=== PATIENT | female | born 1995 | race Caucasian/White ===

== ENCOUNTER 2022-09-07 15:27 | Emergency (ER) | payer SELFPAY ==
--- NOTE | 2022-09-07 15:15 | RT.EKG_ITS ---
APPROVED REPORT Exam: Resting ECG Reason for Exam: chest pain Patient Location: E HR:59 bpm ECG Measurements Heart Rate 59 AXIS ME 189 P 33 QRSd 99 QRS 52 QT 364 T 38 QTc 360 Conclusion Slow sinus arrhythmia...V-rate 46- 77, mean< 60
--- NOTE | 2022-09-07 15:30 | DI.RAD_ITS ---
Exam(s) XR CHEST 2V PA LATERAL EXAM: XR CHEST 2V PA LATERAL CLINICAL HISTORY: Cough, congestion. TECHNIQUE: 2D digital imaging was performed. COMPARISON: No exams were available for comparison FINDINGS: 2 views: Heart size is normal. The mediastinum is not widened. Lungs are clear. No infiltrates nor pleural effusions. Left breast shadow deficient IMPRESSION: No acute pulmonary findings. Asymmetric breast shadows. DATA REPOSITORY: RADIATION DOSE DELIVERED:
[2022-09-07 15:31] VITALS: BP 150/92; PULSE 71; RESP 18; TEMP 35.7; O2SAT 99
--- NOTE | 2022-09-07 15:46 | ED.GENADUL_ITS ---
Discharge Plan Disposition Patient Disposition: Home Condition: Improving Discharge Details Clinical Impression: Acute bronchitis Primary Care Provider: Unknown,Unknown ED Provider: Arcenio Padilla Home Meds and New Rx's Prescriptions: New azithromycin 250 mg tablet See Rx Instructions .ROUTE .COMPLEX Qty: 6 0RF Rx Instructions: For 250 mg dose pack: take 500 mg today (day 1), then 250 mg for 4 days (days 2-5) Discharge Instructions Instructions: Acute Bronchitis (ED) Additional Instructions: Home to rest this evening. Small, frequent sips of fluids so that you maintain good hydration. Your influenza and COVID test were negative today. Return to the emergency department for any acute concern. Medical Decision Making Pleasant and otherwise healthy 27-year-old female presents from work with report of 10 to 12 days of cough, congestion, subjective fever and chills. She denies chest pain. No known sick contacts. She is immunized against COVID. Differential diagnosis includes influenza, COVID, viral process, post viral pneumonia or bronchitis. Patient underwent screening EKG which is unremarkable. She is referred for chest x-ray. Viral swab: Negative for influenza and COVID Chest x-ray: No infiltrate seen. Discussed with patient given the prolonged course that she may be developing bronchitis. Will cover for atypical infections with a course of azithromycin. She is appropriate for discharge to home. HPI General Mode of arrival: ambulatory . Date/Time Provider Initiated Documentation: 09/07/22 15:29 . Limitations to Documentation: no limitations . Information obtained by: patient . History of Present Illness 27 year old F presents to the emergency department with the chief complaint of Cough, congestion for 10+ days, and is localized to the chest. Patient reports no radiation. Patient started experiencing this day(s) and it has been constant. No relieving factors improve symptom(s), No exacerbating factors reported . Patient notes cough and fever/chills; denies shortness of breath. Patient did receive the following treatments prior to arrival, none Related Data Home Medications Medication Instructions Recorded Confirmed azithromycin 250 mg tablet See Rx Instructions PO .COMPLEX #6 09/07/22 tabs Previous Rx's Medication Instructions Recorded azithromycin 250 mg tablet See Rx Instructions PO .COMPLEX #6 09/07/22 tabs Allergies Allergy/AdvReac Type Severity Reaction Status Date / Time amoxicillin Allergy Intermediate Other (See Unverified 09/07/22 15:34 Comment) Penicillins Allergy Intermediate Other (See Unverified 09/07/22 15:34 Comment) General Stated Complaint: RespSymp KEYLA: 3 Review of Systems Narrative: 6 systems are reviewed and otherwise negative PFSH All Active Problems (Updated 09/07/22 @ 16:44 by Arcenio Padilla MD) Acute bronchitis (Acute) Social History Smoking/Tobacco Use Status: Never Smoking risk assessment performed?: Yes Alcohol Intake: current Alcohol Intake frequency: a few times a month Drug use: Daily Substance use type: marijuana Do you feel safe at home: Yes Do you feel safe in your relationship?: Yes Exam Narrative Exam Narrative: GEN: awake, alert, oriented 3. Pleasant, well groomed, interactive. HEAD: Normocephalic, atraumatic ENT: Mucous membranes moist, oropharynx unremarkable, External ear exam unremarkable EYES: PERRL, EOMI NECK: Full ROM, no JANETT, no menigismus CHEST/RESP: Nontender, clear to auscultation bilateral, cough noted CARDIOVASCULAR: RRR, no murmur, rub homar. 2+ Rad pulse bilateral ABDOMEN: Soft, nontender, no mass. +Bowel sounds EXT: Full ROM, no edema, no rash Neuro: Grossly normal neurologic exam, conversant, interactive. Psych: Speech fluent, thoughts congruent, affect normal Course Vital Signs Vital signs: Vital Signs Temperature 35.7 C L 09/07/22 15:31 Pulse 71 09/07/22 15:31 Respiratory Rate 18 09/07/22 15:31 Blood Pressure 150/92 H 09/07/22 15:31 Pulse Oximetry 99 09/07/22 15:31 Temperature 35.7 C L 09/07/22 15:31 Temperature Source Temporal Artery Scan 09/07/22 15:31 Pulse 71 09/07/22 15:31 Respiratory Rate 18 09/07/22 15:31 Respiratory Effort 09/07/22 15:36 Respiratory Depth Normal 09/07/22 15:36 Blood Pressure 150/92 H 09/07/22 15:31 Blood Pressure Position Sitting 09/07/22 15:31 Pulse Oximetry 99 09/07/22 15:31 Oxygen Delivery Method Room Air 09/07/22 15:31 Oxygen Flow Rate 0 09/07/22 15:31 PAWSS Have you Been Recently Intoxicated or Drunk Within the Last 30 days?: No Have you Ever Experienced Previous Episodes of Alcohol Withdrawal?: No Have you ever Experienced Withdrawal Seizures?: No Have you ever Experienced Delirium Tremens(DT)s?: No Have you ever undergone Alcohol Rehabilitation Treatment (i.e, inpt ot outpatient treatment programs)?: No Have you ever Experienced Blackouts?: No Have you ever Combined Alcohol with other Downers within the last 90 days?: No Have you ever Combined Alcohol with any other Substance of Abuse during the last 90 days?: No Positive Blood Alcohol level on Presentation? [PCS.BAL]: No Evidence of Increased Autonomic Activity (i.e. HR>120, tremor, sweating, agitation, nausea)?: No Result: 0
[2022-09-07] MEDS: Acetaminophen 500 MG TAB 1000 MG PO (15:56)
[2022-09-07] MEDS: Albuterol HFA 8 GM 60 PUFF INH IH (16:56)
== END 2022-09-07 17:30 | disposition home or self-care (01) ==
PROVIDERS: Emergency Provider Emergency Medicine
DX: J20.9 Acute bronchitis, unspecified (principal); Z20.822 Contact with and (suspected) exposure to COVID-19
CPT/HCPCS: 93005; 94640; 99284; 71046; 93010

== ENCOUNTER 2022-10-27 15:42 | Emergency (ER) | payer SELFPAY ==
[2022-10-27] VITALS (12 sets, daily range): BP systolic 133–154; BP diastolic 71–88; PULSE 64–103; RESP 11–23; TEMP 36.6; O2SAT 97–100
--- NOTE | 2022-10-27 15:45 | RT.EKG_ITS ---
APPROVED REPORT Exam: Resting ECG Reason for Exam: chest pain Patient Location: E HR:73 bpm ECG Measurements Heart Rate 73 AXIS KS 212 P 28 QRSd 102 QRS 49 QT 372 T 28 QTc 411 Conclusion Sinus rhythm...normal P axis, V-rate 60- 99 Prolonged KS interval...KS >210, V-rate 50- 90 Physician: no stemi, unchanged from prior. inverted T wave in V1 and V2
--- NOTE | 2022-10-27 15:45 | DI.RAD_ITS ---
Exam(s) XR CHEST 2V PA LATERAL EXAM: XR CHEST 2V PA LATERAL CLINICAL HISTORY: chest pain TECHNIQUE: 2D digital imaging was performed of the chest. Two images were obtained. PA and lateral views were obtained. COMPARISON: CR XR CHEST 2V PA LATERAL from 09/07/2022 FINDINGS: MEDIASTINUM: Normal. HEART: Normal. PULMONARY VASCULATURE: Normal. LUNGS: Clear. PLEURAL SPACE: No pleural effusion or pneumothorax. BONE:Within normal limits for the patient's age. OTHER FINDINGS:Normal. IMPRESSION: No acute pulmonary findings. DATA REPOSITORY: RADIATION DOSE DELIVERED:
[2022-10-27 16:01] LABS: Abs Immature Grans 0.07 10^3/uL (0.0-0.06); Absolute Basophil Count 0.05 10^3/uL (0.0-0.2); Absolute Eosinophil Count 0.03 10^3/uL (0.0-0.7); Absolute Lymphocyte Count 2.58 10^3/uL (1.2-3.4); Basophils % 0.4; Eosinophils % 0.3; HCT 43.3 % (36.0-46.0); HGB 13.9 g/dL (11.2-15.7); Immature Grans % 0.6; Lymphocytes % 22.1; MCH 28.9 pg (27.0-33.0); MCHC 32.1 % (32.0-36.0); MCV 90 fL (80-95); MPV 10.7 fL (8.0-11.0); Monocytes % 5.7; Neutrophils % 70.9; Platelet Count 293 10^3/uL (130-400); RBC 4.81 10^6/uL (3.93-5.22); RDW 11.6 % (11.7-14.6); RDW-SD 38.3 fL; WBC 11.66 10^3/uL (4.4-10.8)
[2022-10-27 16:02] LABS: Absolute Monocyte Count 0.66 10^3/uL (0.1-0.8); Absolute Neutrophil Count 8.27 10^3/uL (1.2-6.7)
--- NOTE | 2022-10-27 16:08 | ED.GENADUL_ITS ---
Discharge Plan Disposition Patient Disposition: Home Condition: Improving Discharge Details Clinical Impression: Chest pain Primary Care Provider: Meek Lucio ED Provider: Arnoldo Valentin Home Meds and New Rx's Prescriptions: No Action No Known Home Meds Discharge Instructions Instructions: Chest Pain (ED) Additional Instructions: Work-up in the ER does not reveal any obvious emergent process and your symptoms have essentially resolved. Please watch for new or worsening symptoms and return to the ER for any concerns. 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 Clinically she appears well, nontoxic, hemodynamically stable, pulse in the 80s, afebrile, O2 sat 100% on room air. Based upon her age and lack of risk factors, extremely low suspicion for acute cardiac etiology. PERC negative, will not pursue D-dimer. Instead will initiate cardiac work-up and provide a single DuoNeb given my suspicion for potential chemical irritation. Patient reports at work her symptoms were a 6 out of 10, now a 3 out of 10. She reports history of anxiety and panic attacks but this does not feel the same. Laboratory values reveal minimal nonspecific leukocytosis of 11.66. Potassium is 3.0 but EKG does not reveal any signs of hypokalemia. We will provide both IV and p.o. potassium. Renal function normal, LFTs unremarkable, magnesium 1.9 troponin less than 50, urinalysis unremarkable. COVID, flu, RSV all negative. On reevaluation patient reports that the DuoNeb seemed to make her feel jittery but she states that the chest tightness sensation has essentially resolved. Chest x-ray clear Patient is agreeable to awaiting delta troponin although low suspicion of ACS. Patient reports that she feels well, asymptomatic and feels well enough to go home at this time. She was ambulatory without difficulty. Delta troponin remains less than 50. Upon reevaluation patient remains asymptomatic. We discussed her overall work- up and she is comfortable discharge. We did discuss her low potassium and replenishment here in the ER. We did discuss the importance of outpatient reevaluation through her PCP for her presentation today as well as her hypokalemia. Repeat labs likely indicated to assess her potassium. Standard discharge and return precautions were provided. Patient understands, is agreeable to this plan, and has no additional questions or concerns upon discharge. This documentation was generated using [employer] system, please disregard any oddities of phrase or misspellings. Medical Records Medical records reviewed: Yes I reviewed the patient's medical records. Imaging Data Radiologic Study: Attestation: I personally reviewed and interpreted this imaging study as follows: Imaging: X-Ray Radiologist's impression: PROCEDURE INFORMATION: Exam: XR Chest Exam date and time: 10/27/2022 4:49 PM Age: 27 years old Clinical indication: Chest pain TECHNIQUE: Imaging protocol: Radiologic exam of the chest. Views: 2 views. COMPARISON: CR XR CHEST 2V PA LATERAL 09/07/2022 4:10 PM FINDINGS: Lungs: Unremarkable. No consolidation. Pleural spaces: Unremarkable. No pleural effusion. No pneumothorax. Heart/Mediastinum: Unremarkable. No cardiomegaly. Bones/joints: Unremarkable. IMPRESSION: No acute findings. Lab Data Lab results reviewed: Yes I reviewed the patient's lab results. Labs: Laboratory Tests Range/Units 10/27/22 10/27/22 10/27/22 15:54 15:54 16:17 WBC (4.4-10.8) 10^3/uL 11.66 H RBC (3.93-5.22) 10^6/uL 4.81 Hgb (11.2-15.7) g/dL 13.9 Hct (36.0-46.0) % 43.3 MCV (80-95) fL 90 MCH (27.0-33.0) pg 28.9 MCHC (32.0-36.0) % 32.1 RDW (11.7-14.6) % 11.6 L Plt Count (130-400) 10^3/uL 293 MPV (8.0-11.0) fL 10.7 Immature Gran % 0.6 Neutrophils % 70.9 Lymphocytes % 22.1 Monocytes % 5.7 Eosinophils % 0.3 Basophils % 0.4 Nucleated RBC % (0.0-0.3) % 0.0 Absolute Neutrophils (1.2-6.7) 10^3/uL 8.27 H Absolute Lymphocytes (1.2-3.4) 10^3/uL 2.58 Absolute Monocytes (0.1-0.8) 10^3/uL 0.66 Absolute Eosinophils (0.0-0.7) 10^3/uL 0.03 Absolute Basophils (0.0-0.2) 10^3/uL 0.05 Sodium (136-145) mmol/L 143 Potassium (3.5-5.1) mmol/L 3.0 L Chloride (98-107) mmol/L 104 Carbon Dioxide (21.0-32.0) mmol/L 30.6 Anion Gap (3-11) mmol/L 8.4 BUN (7-18) mg/dL 10 Creatinine (0.55-1.02) mg/dL 0.8 Est GFR (CKD-EPI 2020) (mL/min/1.73m2) 104.15 Glucose (74-106) mg/dL 85 Calcium (8.5-10.1) mg/dL 9.3 Magnesium (1.8-2.4) mg/dL 1.9 Total Bilirubin (0.2-1.0) mg/dL 0.4 AST (15-37) U/L 23 ALT (14-59) U/L 28 Alkaline Phosphatase (46-116) U/L 76 Troponin I (<or=60) ng/L < 50 Total Protein (6.4-8.2) g/dL 8.1 Albumin (3.4-5.0) g/dL 4.2 Urine Color (Yellow) Yellow Urine Clarity (Clear) Sl Cloudy Urine pH (5-8) 7.0 Ur Specific [place] (1.005-1.025) 1.025 Urine Protein (Negative) mg/dL Negative Urine Ketones (Negative) mg/dL Negative Urine Blood (Negative) Negative Urine Nitrite (Negative) Negative Urine Bilirubin (Negative) Negative Urine Urobilinogen (Up to 0.2) mg/dL 0.2 Ur Leukocyte Esterase (Negative) Negative Urine Glucose (Negative) mg/dL Negative COVID-19 Source SARS-CoV-2 (PCR) (Negative) Influenza Type A (PCR) (Negative) Influenza Type B (PCR) (Negative) RSV (PCR) (Negative) Range/Units 10/27/22 10/27/22 16:17 18:50 WBC (4.4-10.8) 10^3/uL RBC (3.93-5.22) 10^6/uL Hgb (11.2-15.7) g/dL Hct (36.0-46.0) % MCV (80-95) fL MCH (27.0-33.0) pg MCHC (32.0-36.0) % RDW (11.7-14.6) % Plt Count (130-400) 10^3/uL MPV (8.0-11.0) fL Immature Gran % Neutrophils % Lymphocytes % Monocytes % Eosinophils % Basophils % Nucleated RBC % (0.0-0.3) % Absolute Neutrophils (1.2-6.7) 10^3/uL Absolute Lymphocytes (1.2-3.4) 10^3/uL Absolute Monocytes (0.1-0.8) 10^3/uL Absolute Eosinophils (0.0-0.7) 10^3/uL Absolute Basophils (0.0-0.2) 10^3/uL Sodium (136-145) mmol/L Potassium (3.5-5.1) mmol/L Chloride (98-107) mmol/L Carbon Dioxide (21.0-32.0) mmol/L Anion Gap (3-11) mmol/L BUN (7-18) mg/dL Creatinine (0.55-1.02) mg/dL Est GFR (CKD-EPI 2020) (mL/min/1.73m2) Glucose (74-106) mg/dL Calcium (8.5-10.1) mg/dL Magnesium (1.8-2.4) mg/dL Total Bilirubin (0.2-1.0) mg/dL AST (15-37) U/L ALT (14-59) U/L Alkaline Phosphatase (46-116) U/L Troponin I (<or=60) ng/L < 50 Total Protein (6.4-8.2) g/dL Albumin (3.4-5.0) g/dL Urine Color (Yellow) Urine Clarity (Clear) Urine pH (5-8) Ur Specific [place] (1.005-1.025) Urine Protein (Negative) mg/dL Urine Ketones (Negative) mg/dL Urine Blood (Negative) Urine Nitrite (Negative) Urine Bilirubin (Negative) Urine Urobilinogen (Up to 0.2) mg/dL Ur Leukocyte Esterase (Negative) Urine Glucose (Negative) mg/dL COVID-19 Source Nasopharynx SARS-CoV-2 (PCR) (Negative) Negative Influenza Type A (PCR) (Negative) Negative Influenza Type B (PCR) (Negative) Negative RSV (PCR) (Negative) Negative ECG Data Attestation: I personally reviewed and interpreted this ECG (s) as follows: Interpretation: Sinus rhythm, ventricular rate of 73. No STEMI HPI General Mode of arrival: ambulatory . Date/Time Provider Initiated Documentation: 10/27/22 15:44 . Limitations to Documentation: no limitations . Information obtained by: patient . History of Present Illness 27 year old F presents to the emergency department with the chief complaint of Chest tightness, described as mild, with intensity rated at 3. Quality is described as other (Tightness), and is localized to the chest. Patient reports no radiation. Patient started experiencing this minute(s) (30) and it has been other (improving, was 6/10). No relieving factors improve symptom(s), No exacerbating factors reported . Patient notes no other symptoms.. Patient did receive the following treatments prior to arrival, none Related Data Home Medications Medication Instructions Recorded Confirmed Unknown [No Known Home Meds] 10/27/22 10/27/22 Allergies Allergy/AdvReac Type Severity Reaction Status Date / Time amoxicillin Allergy Intermediate Other (See Unverified 10/27/22 15:53 Comment) Penicillins Allergy Intermediate Other (See Unverified 10/27/22 15:53 Comment) General Stated Complaint: Chest Pain KEYLA: 2 Review of Systems Constitutional Constitutional: Denies fever(s) and Denies weakness Cardiovascular Cardiovascular: Reports chest pain (Tightness) and Denies dyspnea Respiratory Respiratory: Denies cough and Denies dyspnea Gastrointestinal Gastrointestinal: Denies abdominal pain, Denies nausea and Denies vomiting Musculoskeletal Musculoskeletal: Denies back pain Integumentary/Breasts Skin/Breast: Denies rash Neurologic Neurologic: Denies weakness Psychiatric Psychiatric: Reports anxiety (This does not feel like anxiety) Hematologic/Lymphatic Hematologic/Lymphatic: Denies easy bleeding and Denies easy bruising PFSH All Active Problems (Updated 10/27/22 @ 19:35 by IRAJ Sanford) Chest pain (Acute) Social History Smoking/Tobacco Use Status: Never Smoking risk assessment performed?: Yes Alcohol Intake: current Alcohol Intake frequency: a few times a month Drug use: Daily Substance use type: marijuana Do you feel safe at home: Yes Do you feel safe in your relationship?: Yes Exam Const General: cooperative, healthy appearing, comfortable and no acute distress Orientation: alert and awake [facility] Head: normal to inspection, normocephalic and atraumatic Face and sinus: normal facial exam Mouth: moist mucous membranes Eyes General: appearance normal, both eyes and all related structures Conjunctivae: conjunctivae normal Neck Neck: normal visual inspection, full ROM, no meningeal signs, trachea midline and supple Resp Effort & Inspection: normal respiratory effort and able to speak in complete sentences Auscultation: clear to auscultation bilaterally Cardio Rate: regular rate Rhythm: regular rhythm GI Palpation: soft, not firm, no guarding, no pulsatile masses and nontender Auscultation: normal bowel sounds Back/Spine/Pelvis Back: no CVA tenderness and No back tenderness Skin General skin exam: no rashes or lesions noted Neuro General: patient alert, patient awake, moves all extremities and no focal motor deficits Cognition: normal cognition Speech: speech normal Gait: normal gait Motor: muscle tone normal throughout Sensory Exam: no sensory deficits noted Extrem General: normal to inspection, full ROM, capillary refill normal, no pedal edema and no calf tenderness Psych Appearance: grossly normal Mental Status: mental status grossly normal Course Vital Signs Vital signs: Vital Signs Temperature 36.6 C 10/27/22 15:47 Pulse 80 10/27/22 15:47 Respiratory Rate 11 L 10/27/22 15:47 Blood Pressure 154/88 H 10/27/22 15:47 Pulse Oximetry 100 10/27/22 15:47 Temperature 36.6 C 10/27/22 15:47 Pulse 80 10/27/22 15:47 Respiratory Rate 11 L 10/27/22 15:47 Respiratory Effort Short of Breath 10/27/22 16:03 Respiratory Depth Normal 10/27/22 16:03 Respiratory Pattern Normal 10/27/22 16:03 Blood Pressure 154/88 H 10/27/22 15:47 Blood Pressure Position Sitting 10/27/22 15:47 Pulse Oximetry 100 10/27/22 15:47 Oxygen Delivery Method Room Air 10/27/22 15:47 Oxygen Flow Rate 0 10/27/22 15:47 Pain Level 6 10/27/22 16:03 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 Lab/Test Results Lab/Test Results: Laboratory Tests Range/Units 10/27/22 15:54 WBC (4.4-10.8) 10^3/uL 11.66 H RBC (3.93-5.22) 10^6/uL 4.81 Hgb (11.2-15.7) g/dL 13.9 Hct (36.0-46.0) % 43.3 MCV (80-95) fL 90 MCH (27.0-33.0) pg 28.9 MCHC (32.0-36.0) % 32.1 RDW (11.7-14.6) % 11.6 L Plt Count (130-400) 10^3/uL 293 MPV (8.0-11.0) fL 10.7 Immature Gran % 0.6 Neutrophils % 70.9 Lymphocytes % 22.1 Monocytes % 5.7 Eosinophils % 0.3 Basophils % 0.4 Nucleated RBC % (0.0-0.3) % 0.0 Absolute Neutrophils (1.2-6.7) 10^3/uL 8.27 H Absolute Lymphocytes (1.2-3.4) 10^3/uL 2.58 Absolute Monocytes (0.1-0.8) 10^3/uL 0.66 Absolute Eosinophils (0.0-0.7) 10^3/uL 0.03 Absolute Basophils (0.0-0.2) 10^3/uL 0.05
[2022-10-27 16:22] LABS: ALT 28 U/L (14-59); AST 23 U/L (15-37); Albumin 4.2 g/dL (3.4-5.0); Alkaline Phosphatase 76 U/L (46-116); Anion Gap 8.4 mmol/L (3-11); BUN 10 mg/dL (7-18); Bilirubin, Total 0.4 mg/dL (0.2-1.0); CO2 30.6 mmol/L (21.0-32.0); CREATININE 0.8 mg/dL (0.55-1.02); Calcium 9.3 mg/dL (8.5-10.1); Chloride 104 mmol/L (98-107); Estimated GFR 104.15 (mL/min/1.73m2); Glucose 85 mg/dL (74-106); Magnesium 1.9 mg/dL (1.8-2.4); Sodium 143 mmol/L (136-145); Total Protein 8.1 g/dL (6.4-8.2); Troponin I < 50 ng/L (<or=60)
[2022-10-27 16:45] LABS: Bilirubin Negative (Negative); Blood Negative (Negative); Clarity Sl Cloudy (Clear); Glucose Negative (Negative); Ketones Negative (Negative); Leukocyte Esterase Negative (Negative); Nitrite Negative (Negative); Specific Gravity 1.025 (1.005-1.025); Urobilinogen 0.2 mg/dL (Up to 0.2)
--- NOTE | 2022-10-27 16:58 | DI.VRAD_ITS ---
PROCEDURE INFORMATION: Exam: XR Chest Exam date and time: 10/27/2022 4:49 PM Age: 27 years old Clinical indication: Chest pain TECHNIQUE: Imaging protocol: Radiologic exam of the chest. Views: 2 views. COMPARISON: CR XR CHEST 2V PA LATERAL 09/07/2022 4:10 PM FINDINGS: Lungs: Unremarkable. No consolidation. Pleural spaces: Unremarkable. No pleural effusion. No pneumothorax. Heart/Mediastinum: Unremarkable. No cardiomegaly. Bones/joints: Unremarkable. IMPRESSION: No acute findings. Dictated and Authenticated by: Giselle Sanchez MD. Ordering:BRANDEE Mclaughlin MD
[2022-10-27] MEDS: Potassium Chloride 20 MEQ TABCR 40 MEQ PO (17:22)
[2022-10-27 17:23] LABS: COVID-19 PCR Negative (Negative); Influenza A PCR Negative (Negative); Influenza B PCR Negative (Negative); RSV PCR Negative (Negative)
[2022-10-27] MEDS: POTASSIUM CHLORIDE 10 MEQ/100 ML BAG 100 MEQ IVPB (17:23)
[2022-10-27] MEDS: Albuterol/Ipratropium 3 ML UPD VIAL UPD (17:27)
[2022-10-27 17:36] LABS: Source Nasopharynx
[2022-10-27 19:24] LABS: Troponin I < 50 ng/L (<or=60)
== END 2022-10-27 19:53 | disposition home or self-care (01) ==
PROVIDERS: Emergency Provider Physician Assistant; PCP Family Medicine
DX: R07.89 Other chest pain (principal); D72.829 Elevated white blood cell count, unspecified; Z20.822 Contact with and (suspected) exposure to COVID-19
CPT/HCPCS: 36415; 80053; 81025; 87637; 93005; 96365; 99284; 71046; 81003; 83735; 84484; 85025; 93010; J3480; J7620